=== PATIENT | male | born 1960 | race Caucasian/White ===

== ENCOUNTER 2020-12-18 21:27 | Observation (INO) | payer MEDICARE ==
[2020-12-18 22:11] LABS: #Basophils 0.1 10x3/uL (0.0-0.2); #Eosinphils 0.3 10x3/uL (0.0-0.5); #Neutrophils 8.1 10x3/uL (1.5-8.4); %Basophils 0.7 % (0.0-2.0); %Eosinophils 2.6 % (0.0-6.0); %Lymphocytes 15.6 % (18.0-47.0); %Monocytes 8.9 % (0.0-10.0); %Neutrophils 71.6 % (40.0-75.0); Hemoglobin 14.7 g/dL (13.5-17.5); Mean Corpuscular HGB CONC 34.3 g/dL (32.0-36.0); Mean Corpuscular Hemoglobin 30.9 pg (27.0-33.0); Mean Corpuscular Volume 90.3 fl (81.2-95.1); Mean Platelet Volume 11.4 fl (7.4-10.4); Platelet Count 166 10x3/uL (150-450); RBC Distribution Width 13.1 % (11.5-14.5); Red Blood Cell (RBC) Count 4.75 10x6/uL (4.32-5.72); White Blood Cell (WBC) Count 11.3 10x3/uL (3.5-10.5)
[2020-12-18 22:19] LABS: ALT (SGPT) 36 U/L (8-55); AST (SGOT) 30 U/L (5-34); Albumin 4.2 g/dL (3.5-5.0); Alkaline Phosphatase 69 U/L (40-110); Anion Gap 19 mmol/L (10-20); BUN (Urea Nitrogen) 24 mg/dL (8.4-25.7); Bilirubin, Total 0.5 mg/dL (0.2-1.2); CK (CPK) 277 U/L (30-200); Calc. Creatinine Clearance 0 mL/min (70-130); Calcium 9.4 mg/dL (7.8-10.44); Carbon Dioxide 17 mmol/L (22-29); Chloride 103 mmol/L (98-107); Globulin 3.1 g/dL (2.4-3.5); Glucose 275 mg/dL (70-105); Potassium 3.7 mmol/L (3.5-5.1); Protein, Total 7.3 g/dL (6.0-8.3); Sodium 135 mmol/L (136-145)
[2020-12-18 22:31] LABS: Acetaminophen Less than 6.0 mcg/mL (10.0-30.0); Alcohol Less than 10 mg/dL (Less than 10); Salicylate Less than 8.0 mg/dL (15.0-30.0)
[2020-12-18 23:35] LABS: SARS-CoV-2 NAA Rapid Test Not Detected (NotDetected)
[2020-12-19] MEDS ORDERED: Guaifenesin DM 100-10/5 ML UDCUP PO PRN (00:15)
[2020-12-19] MEDS ORDERED: Ondansetron PF 4 MG/2 ML Vial IVP PRN (00:15)
[2020-12-19] MEDS ORDERED: Acetaminophen 325 MG TAB PO PRN (00:15)
[2020-12-19] MEDS ORDERED: Senokot S 8.6-50 MG TAB PO PRN (00:15)
[2020-12-19] MEDS ORDERED: Dextrose 50% Abboject 50 ML SYRINGE SLOW IVP PRN (00:15)
[2020-12-19] MEDS ORDERED: Calcium Carbonate 500 MG ChewTAB PO PRN (00:15)
[2020-12-19] MEDS ORDERED: Zolpidem Tartrate 5 MG TAB PO PRN (00:15)
[2020-12-19] MEDS ORDERED: Dextrose 5% in Water 1,000 ML IV PRN (00:15)
[2020-12-19] MEDS ORDERED: Sodium Chloride 0.9% 500 ML IV SCH (00:30)
[2020-12-19] MEDS ORDERED: Sodium Chloride 0.9% 1,000 ML IV SCH (00:30)
[2020-12-19 01:05] LABS: Lactic Acid 2.4 mmol/L (0.5-2.2)
[2020-12-19] MEDS: HumaLOG 300 UNITS/3 ML VIAL SC PRN ×3 (01:47→21:20)
[2020-12-19 01:57] VITALS: BMI 31.9
[2020-12-19 02:35] LABS: Bilirubin Neg (Negative); Blood, Urine Negative (Negative); Clarity Clear (Clear); Glucose, Urine (Dipstick) 250 mg/dL (Negative); Ketone, Urine Negative (Negative); Leukocyte Negative (Negative); Nitrite Negative (Negative); Protein, Urine (Dipstick) Negative (Neg-Trace); Specific Gravity, Urine 1.015 (1.002-1.036); Urobilinogen Normal mg/dL (Less than 2)
[2020-12-19 02:51] LABS: Bacteria/HPF None Seen HPF (None Seen); RBC/HPF 0-3 HPF (0-3); Squamous Epithelial 0-3 HPF (0-3)
[2020-12-19] MEDS: HYDROcodone/Acetaminophen 5/325 mg Tablet PO PRN ×5 (05:00→21:18)
[2020-12-19] MEDS: glipiZIDE 5 MG TAB PO SCH ×2 (08:51→15:35)
[2020-12-19] MEDS: Carvedilol 3.125 MG TAB PO SCH ×2 (08:51→18:48)
[2020-12-19] MEDS: Clopidogrel Bisulfate 75 MG TAB PO SCH (08:52)
[2020-12-19] MEDS: Enoxaparin Sodium 40 MG/0.4 ML SYRINGE SC SCH (08:52)
[2020-12-19] MEDS: Aspirin Chewable 81 MG TAB PO SCH (08:52)
[2020-12-19 12:39] LABS: Lactic Acid 1.7 mmol/L (0.5-2.2)
[2020-12-19 12:43] LABS: #Basophils 0.1 10x3/uL (0.0-0.2); #Eosinphils 0.4 10x3/uL (0.0-0.5); #Neutrophils 5.7 10x3/uL (1.5-8.4); %Basophils 0.6 % (0.0-2.0); %Eosinophils 3.9 % (0.0-6.0); %Lymphocytes 22.8 % (18.0-47.0); %Monocytes 10.6 % (0.0-10.0); %Neutrophils 61.8 % (40.0-75.0); Hemoglobin 13.7 g/dL (13.5-17.5); Mean Corpuscular HGB CONC 33.9 g/dL (32.0-36.0); Mean Corpuscular Hemoglobin 31.1 pg (27.0-33.0); Mean Corpuscular Volume 91.8 fl (81.2-95.1); Mean Platelet Volume 11.4 fl (7.4-10.4); Platelet Count 139 10x3/uL (150-450); White Blood Cell (WBC) Count 9.3 10x3/uL (3.5-10.5)
[2020-12-19 12:44] LABS: Anion Gap 12 mmol/L (10-20); BUN (Urea Nitrogen) 14 mg/dL (8.4-25.7); CK (CPK) 211 U/L (30-200); Calc. Creatinine Clearance 134 mL/min (70-130); Calcium 8.8 mg/dL (7.8-10.44); Carbon Dioxide 20 mmol/L (22-29); Chloride 105 mmol/L (98-107); Glucose 166 mg/dL (70-105); Potassium 4.2 mmol/L (3.5-5.1); Sodium 133 mmol/L (136-145)
[2020-12-19] MEDS ORDERED: Adenosine 6 MG/2 ML VIAL ONE (13:24)
[2020-12-19] MEDS ORDERED: Nitroglycerin 50 MG/250 ML BOT 250 ML ONE (13:24)
[2020-12-19] MEDS ORDERED: Heparin 10,000 UNITS/ 10 ML VIAL ONE (13:24)
[2020-12-19] MEDS ORDERED: Atropine Sulfate 0.4 mg/1 ml Vial ONE (13:29)
[2020-12-19] MEDS ORDERED: Fentanyl 100 MCG/2 ML VIAL ONE (13:29)
[2020-12-19] MEDS ORDERED: Midazolam HCl 2 mg/2 ml Vial ONE (13:29)
[2020-12-19] MEDS ORDERED: Lidocaine 1% (PF) 30 ML VIAL ONE (13:29)
[2020-12-19] MEDS ORDERED: Nitroglycerin 0.4 MG TAB (25 Tab Bottle) SL PRN (16:15)
[2020-12-19] MEDS ORDERED: Atorvastatin Calcium 20 MG TAB PO SCH (21:00)
[2020-12-20 05:22] LABS: Anion Gap 13 mmol/L (10-20); BUN (Urea Nitrogen) 11 mg/dL (8.4-25.7); Calc. Creatinine Clearance 136 mL/min (70-130); Carbon Dioxide 21 mmol/L (22-29); Chloride 106 mmol/L (98-107); Glucose 197 mg/dL (70-105); Potassium 4.2 mmol/L (3.5-5.1); Sodium 136 mmol/L (136-145)
[2020-12-20] MEDS: HYDROcodone/Acetaminophen 5/325 mg Tablet PO PRN ×2 (05:42→13:15)
[2020-12-20] MEDS: HumaLOG 300 UNITS/3 ML VIAL SC PRN ×2 (05:45→11:50)
[2020-12-20] MEDS: glipiZIDE 5 MG TAB PO SCH (08:46)
[2020-12-20] MEDS: Enoxaparin Sodium 40 MG/0.4 ML SYRINGE SC SCH (08:46)
[2020-12-20] MEDS: Carvedilol 3.125 MG TAB PO SCH (08:49)
[2020-12-20] MEDS: Clopidogrel Bisulfate 75 MG TAB PO SCH (08:49)
[2020-12-20] MEDS: Aspirin Chewable 81 MG TAB PO SCH (08:50)
[2020-12-20 13:36] VITALS: BP 148/80; TEMP 98
== END 2020-12-20 14:25 | disposition home or self-care (01) ==
LOC: CSHERS 21:27 → INTOOBSV 12-19 00:17 → CSHTELE 12-19 00:17
PROVIDERS: ADMIT Student in an Organized Health Care Education/Training Program; ATTEND Hospitalist
PROC: B245ZZ3 Ultrasonography of Left Heart, Intravascular (ICD-10-PCS; principal; 2020-12-19)
PROC: 4A023N7 Measurement of Cardiac Sampling and Pressure, Left Heart, Percutaneous Approach (ICD-10-PCS; 2020-12-19)
PROC: B2111ZZ Fluoroscopy of Multiple Coronary Arteries using Low Osmolar Contrast (ICD-10-PCS; 2020-12-19)
PROC: B2151ZZ Fluoroscopy of Left Heart using Low Osmolar Contrast (ICD-10-PCS; 2020-12-19)
PROC: 027236Z Dilation of Coronary Artery, Three Arteries with Three Drug-eluting Intraluminal Devices, Percutaneous Approach (ICD-10-PCS; 2020-12-19)
PROC: B241ZZ3 Ultrasonography of Multiple Coronary Arteries, Intravascular (ICD-10-PCS; 2020-12-19)
DX: I25.10 Atherosclerotic heart disease of native coronary artery without angina pectoris (principal); Z95.5 Presence of coronary angioplasty implant and graft; E78.5 Hyperlipidemia, unspecified; E66.01 Morbid (severe) obesity due to excess calories; Z68.31 Body mass index [BMI] 31.0-31.9, adult; E11.65 Type 2 diabetes mellitus with hyperglycemia; F17.210 Nicotine dependence, cigarettes, uncomplicated; N17.9 Acute kidney failure, unspecified; I10 Essential (primary) hypertension; E87.2 Acidosis; E86.1 Hypovolemia; Z20.822 Contact with and (suspected) exposure to COVID-19; I45.10 Unspecified right bundle-branch block
CPT/HCPCS: 36415; 36416; 71045; 80048; 80053; 80307; 81001; 82550; 83605; 83880; 84443; 84484; 85025; 92928; 92929; 92978; 92979; 93005; 93010; 93458; 94760; 99152; 99153; C1753; C1874; C1887; C9600; C9601; J0153; J0461; J1644; J1650; J1815; J2001; J2250; J3010; J7030; J7050; U0002

== ENCOUNTER 2022-02-06 10:46 | Inpatient (IN) | payer MEDICARE ==
[2022-02-06] MEDS ORDERED: Ketorolac Tromethamine 30 MG/ML VIAL ONE (11:30)
[2022-02-06] MEDS ORDERED: Ondansetron PF 4 MG/2 ML Vial ONE (11:30)
[2022-02-06 11:52] LABS: Prothrombin Time 10.9 sec (9.5-12.1)
[2022-02-06 11:53] LABS: ALT (SGPT) 14 U/L (8-55); AST (SGOT) 11 U/L (5-34); Albumin 3.5 g/dL (3.4-4.8); Alkaline Phosphatase 59 U/L (40-110); Anion Gap 14 mmol/L (10-20); BUN (Urea Nitrogen) 37 mg/dL (8.4-25.7); Bilirubin, Total 0.2 mg/dL (0.2-1.2); Calc. Creatinine Clearance 0 mL/min (70-130); Calcium 8.7 mg/dL (7.8-10.44); Carbon Dioxide 16 mmol/L (23-31); Chloride 111 mmol/L (98-107); Estimated GFR 102; Glucose 162 mg/dL (80-115); Potassium 4.7 mmol/L (3.5-5.1); Protein, Total 5.5 g/dL (5.8-8.1); Sodium 136 mmol/L (136-145)
[2022-02-06 11:54] LABS: #Basophils 0.1 10x3/uL (0.0-0.2); #Eosinphils 0.3 10x3/uL (0.0-0.5); #Monocytes 1.1 10x3/uL (0.0-1.1); #Neutrophils 11.5 10x3/uL (1.5-8.4); %Basophils 0.5 % (0.0-2.0); %Eosinophils 2.1 % (0.0-6.0); %Lymphocytes 13.6 % (18.0-47.0); %Monocytes 6.9 % (0.0-10.0); %Neutrophils 76.1 % (40.0-75.0); Hemoglobin 8.7 g/dL (13.5-17.5); Mean Corpuscular HGB CONC 33.7 g/dL (32.0-36.0); Mean Corpuscular Hemoglobin 31.6 pg (27.0-33.0); Mean Corpuscular Volume 93.8 fl (81.2-95.1); Mean Platelet Volume 11.4 fl (7.4-10.4); PTT 20.8 sec (22.0-33.0); Platelet Count 185 10x3/uL (150-450); RBC Distribution Width 13.7 % (11.5-14.5); Red Blood Cell (RBC) Count 2.75 10x6/uL (4.32-5.72); White Blood Cell (WBC) Count 15.2 10x3/uL (3.5-10.5)
[2022-02-06] MEDS ORDERED: Iopamidol 370 76% 100 ML VIAL ONE (12:25)
[2022-02-06] MEDS ORDERED: cefTRIAXone\\ROCEPHIN 1 GM VIAL ONE (12:55)
[2022-02-06 13:50] LABS: Bilirubin Neg (Negative); Blood, Urine Negative (Negative); Clarity Clear (Clear); Glucose, Urine (Dipstick) Normal (Negative); Ketone, Urine Negative (Negative); Leukocyte Negative (Negative); Nitrite Negative (Negative); Protein, Urine (Dipstick) 15 mg/dl (Neg-Trace); Specific Gravity, Urine 1.015 (1.005-1.030); Urobilinogen Normal mg/dL (Less than 2)
[2022-02-06 14:12] LABS: Lactic Acid 2.3 mmol/L (0.5-2.2)
[2022-02-06 14:24] LABS: SARS-CoV-2 NAA Rapid Test Not Detected (NotDetected)
[2022-02-06] MEDS ORDERED: Ondansetron PF 4 MG/2 ML Vial IVP PRN (17:08)
[2022-02-06] MEDS ORDERED: Acetaminophen 650 MG Suppository PR PRN (17:08)
[2022-02-06] MEDS ORDERED: Ondansetron ODT 4 MG TAB PO PRN (17:08)
[2022-02-06 19:33] LABS: Magnesium 1.7 mg/dL (1.6-2.6)
[2022-02-06 20:02] LABS: Iron 165 ug/dL (65-175); Iron Binding Capacity, Total 305 mcg/dL (261-462)
[2022-02-06] MEDS ORDERED: Dextrose 5% in Water 1,000 ML IV PRN (22:34)
[2022-02-06] MEDS ORDERED: Insulin Regular 300 UNITS/3 ML VIAL SC PRN ×2 (22:34)
[2022-02-06] MEDS ORDERED: Dextrose 50% Abboject 50 ML SYRINGE SLOW IVP PRN (22:34)
[2022-02-06] MEDS ORDERED: Cefepime 2 GM VIAL ONE (22:39)
[2022-02-06] MEDS: Cefepime 2 GM in Sodium Chloride 0.9% 100 ML IVPB SCH (23:17)
[2022-02-06] MEDS: Sodium Chloride 0.9% 1,000 ML IV SCH (23:17)
[2022-02-06] MEDS: Acetaminophen 325 MG TAB PO PRN (23:17)
[2022-02-07] MEDS ORDERED: VANCOMYCIN 1.75 GM/350 ML BAG 1.75 GM in Premix Bag 1 BAG IVPB SCH (00:30)
[2022-02-07 06:00] LABS: #Basophils 0.1 10x3/uL (0.0-0.2); #Monocytes 0.9 10x3/uL (0.0-1.1); #Neutrophils 7.1 10x3/uL (1.5-8.4); %Basophils 0.6 % (0.0-2.0); %Eosinophils 8.4 % (0.0-6.0); %Lymphocytes 21.4 % (18.0-47.0); %Monocytes 8.1 % (0.0-10.0); %Neutrophils 60.9 % (40.0-75.0); Hemoglobin 6.8 g/dL (13.5-17.5); Mean Corpuscular Hemoglobin 32.1 pg (27.0-33.0); Mean Corpuscular Volume 94.3 fl (81.2-95.1); Mean Platelet Volume 11.3 fl (7.4-10.4); Platelet Count 162 10x3/uL (150-450); RBC Distribution Width 13.6 % (11.5-14.5); Red Blood Cell (RBC) Count 2.12 10x6/uL (4.32-5.72); White Blood Cell (WBC) Count 11.6 10x3/uL (3.5-10.5)
[2022-02-07 06:22] LABS: Anion Gap 10 mmol/L (10-20); BUN (Urea Nitrogen) 16 mg/dL (8.4-25.7); Calc. Creatinine Clearance 0 mL/min (70-130); Calcium 8.2 mg/dL (7.8-10.44); Carbon Dioxide 20 mmol/L (23-31); Chloride 111 mmol/L (98-107); Estimated GFR 106; Glucose 114 mg/dL (80-115); Potassium 4.2 mmol/L (3.5-5.1); Sodium 137 mmol/L (136-145)
[2022-02-07] MEDS: Acetaminophen 325 MG TAB PO PRN (08:47)
[2022-02-07] MEDS: Cefepime 2 GM in Sodium Chloride 0.9% 100 ML IVPB SCH (08:47)
[2022-02-07] MEDS: Sodium Chloride 0.9% 1,000 ML IV SCH (10:20)
[2022-02-07] MEDS ORDERED: Lidocaine 5% Patch TD SCH (10:30)
[2022-02-07] MEDS ORDERED: Pantoprazole 40 MG VIAL IVP SCH ×2 (11:00→16:15)
[2022-02-07] MEDS ORDERED: HYDROcodone/Acetaminophen 5/325 mg Tablet PO SCH (11:00)
[2022-02-07] MEDS ORDERED: Vancomycin 1.5 GRAM/300 ML BAG 1.5 GM in Premix Bag 1 BAG IVPB SCH (14:30)
[2022-02-07] MEDS: Transdermal Patch Removal TOP SCH (22:56)
[2022-02-07] MEDS: HYDROcodone/Acetaminophen 5/325 mg Tablet PO PRN (23:11)
[2022-02-08 03:58] LABS: #Basophils 0.1 10x3/uL (0.0-0.2); #Neutrophils 5.1 10x3/uL (1.5-8.4); %Basophils 0.7 % (0.0-2.0); %Eosinophils 9.9 % (0.0-6.0); %Lymphocytes 25.6 % (18.0-47.0); %Neutrophils 52.9 % (40.0-75.0); Hemoglobin 7.9 g/dL (13.5-17.5); Mean Corpuscular HGB CONC 34.6 g/dL (32.0-36.0); Mean Corpuscular Hemoglobin 32.4 pg (27.0-33.0); Mean Corpuscular Volume 93.4 fl (81.2-95.1); Platelet Count 149 10x3/uL (150-450); RBC Distribution Width 13.9 % (11.5-14.5); Red Blood Cell (RBC) Count 2.44 10x6/uL (4.32-5.72); White Blood Cell (WBC) Count 9.6 10x3/uL (3.5-10.5)
[2022-02-08 04:08] LABS: Anion Gap 12 mmol/L (10-20); BUN (Urea Nitrogen) 14 mg/dL (8.4-25.7); Calc. Creatinine Clearance 121 mL/min (70-130); Calcium 8.3 mg/dL (7.8-10.44); Carbon Dioxide 22 mmol/L (23-31); Chloride 107 mmol/L (98-107); Estimated GFR 105; Glucose 119 mg/dL (80-115); Potassium 3.9 mmol/L (3.5-5.1); Sodium 137 mmol/L (136-145)
[2022-02-08] MEDS: HYDROcodone/Acetaminophen 5/325 mg Tablet PO PRN ×3 (06:16→22:30)
[2022-02-08] MEDS ORDERED: traMADol HCl 50 MG TAB PO PRN (08:36)
[2022-02-08] MEDS: Lidocaine 5% Patch TD SCH (10:22)
[2022-02-08] MEDS: Pantoprazole 40 MG VIAL IVP SCH ×2 (10:22→22:22)
[2022-02-08] MEDS ORDERED: Fentanyl 100 MCG/2 ML VIAL ONE (14:35)
[2022-02-08] MEDS: Transdermal Patch Removal TOP SCH (23:11)
[2022-02-09] MEDS: HYDROcodone/Acetaminophen 5/325 mg Tablet PO PRN ×2 (03:03→10:43)
[2022-02-09 04:21] LABS: #Basophils 0.1 10x3/uL (0.0-0.2); #Monocytes 0.9 10x3/uL (0.0-1.1); #Neutrophils 5.2 10x3/uL (1.5-8.4); %Basophils 0.6 % (0.0-2.0); %Eosinophils 10.3 % (0.0-6.0); %Lymphocytes 24.6 % (18.0-47.0); %Monocytes 9.3 % (0.0-10.0); %Neutrophils 54.6 % (40.0-75.0); Hemoglobin 8.3 g/dL (13.5-17.5); Mean Corpuscular HGB CONC 33.7 g/dL (32.0-36.0); Mean Corpuscular Hemoglobin 32.2 pg (27.0-33.0); Mean Corpuscular Volume 95.3 fl (81.2-95.1); Mean Platelet Volume 10.9 fl (7.4-10.4); Platelet Count 171 10x3/uL (150-450); RBC Distribution Width 14.5 % (11.5-14.5); Red Blood Cell (RBC) Count 2.58 10x6/uL (4.32-5.72); White Blood Cell (WBC) Count 9.6 10x3/uL (3.5-10.5)
[2022-02-09 04:37] LABS: Anion Gap 11 mmol/L (10-20); BUN (Urea Nitrogen) 10 mg/dL (8.4-25.7); Calc. Creatinine Clearance 121 mL/min (70-130); Calcium 8.5 mg/dL (7.8-10.44); Carbon Dioxide 25 mmol/L (23-31); Chloride 106 mmol/L (98-107); Estimated GFR 105; Glucose 93 mg/dL (80-115); Sodium 138 mmol/L (136-145)
[2022-02-09] MEDS: Lidocaine 5% Patch TD SCH (10:22)
[2022-02-09] MEDS: Pantoprazole 40 MG VIAL IVP SCH (10:22)
[2022-02-09 10:36] VITALS: BMI 25.8
[2022-02-09 13:18] VITALS: BP 116/70; TEMP 98.1
== END 2022-02-09 12:40 | disposition home or self-care (01) | DRG 378 ==
LOC: SUATTDRO 10:46 → CSHERS 10:46 → CSHTELE 18:30
PROVIDERS: ADMIT Family Medicine; ATTEND Family Medicine
PROC: 0DB68ZX Excision of Stomach, Via Natural or Artificial Opening Endoscopic, Diagnostic (ICD-10-PCS; principal; 2022-02-08)
PROC: 0DB78ZX Excision of Stomach, Pylorus, Via Natural or Artificial Opening Endoscopic, Diagnostic (ICD-10-PCS; 2022-02-08)
PROC: 30233N1 Transfusion of Nonautologous Red Blood Cells into Peripheral Vein, Percutaneous Approach (ICD-10-PCS; 2022-02-08)
DX: K25.4 Chronic or unspecified gastric ulcer with hemorrhage (principal); D62 Acute posthemorrhagic anemia; I50.32 Chronic diastolic (congestive) heart failure; R65.10 Systemic inflammatory response syndrome (SIRS) of non-infectious origin without acute organ dysfunction; K92.1 Melena; E11.9 Type 2 diabetes mellitus without complications; E78.5 Hyperlipidemia, unspecified; I25.10 Atherosclerotic heart disease of native coronary artery without angina pectoris; F17.210 Nicotine dependence, cigarettes, uncomplicated; I11.0 Hypertensive heart disease with heart failure; R53.1 Weakness; M25.511 Pain in right shoulder; K20.90 Esophagitis, unspecified without bleeding; K29.80 Duodenitis without bleeding; K44.9 Diaphragmatic hernia without obstruction or gangrene; Z20.822 Contact with and (suspected) exposure to COVID-19; Z79.899 Other long term (current) drug therapy; Z79.82 Long term (current) use of aspirin; Z79.02 Long term (current) use of antithrombotics/antiplatelets; Z71.6 Tobacco abuse counseling; Z79.84 Long term (current) use of oral hypoglycemic drugs; Z95.5 Presence of coronary angioplasty implant and graft; Z98.890 Other specified postprocedural states
CPT/HCPCS: 36415; 36416; 36430; 71045; 71260; 74177; 80048; 80053; 81003; 83540; 83550; 83605; 83735; 84484; 85025; 85610; 85730; 86850; 86900; 86901; 87040; 88305; 88342; 93005; 94760; 96374; 96375; C9113; J0692; J0696; J1885; J2405; J3010; J3370; J3490; J7050; P9016; Q9967